=== PATIENT | male | born 1970 | race African-American/Black ===

== ENCOUNTER 2016-08-12 13:46 | Emergency (ER) | payer OTHER ==
[2016-08-12 14:14] VITALS: BP 120/70
[2016-08-12] MEDS ORDERED: Ketorolac 60 MG/2 ML SDV IM ONE (14:41)
--- NOTE | 2016-08-12 14:42 | EDM.PDOC ---
[id number] 4d RSD LEFT ARM Time Seen by Provider: 08/12/16 14:43 Source: Reports: Patient History Limitations: Reports: No limitations - History of Present Illness INITIAL COMMENTS - FREE TEXT/NARRATIVE: pt has a history of Rsd following a carpal tunnel repair. He has a flare of pain from time to time. . Occurred When: last week Method of Injury: other (no injury) Pain/Injury Location: Reports: upper extremity, left Associated Symptoms: Reports: denies other symptoms Allergies/ADRs: Allergies measles vaccine, live Allergy (Severe, Verified 02/23/16 01:40) Rash vancomycin Adverse Reaction (Severe, Verified 02/24/16 15:00) Dizziness Home Medications: Ambulatory Orders DULoxetine [Cymbalta] 60 mg PO BID 04/10/13 [Confirmed 08/12/16] Gabapentin [Neurontin] 300 mg PO BEDTIME 04/10/13 [Confirmed 08/12/16] Gabapentin [Neurontin] 600 mg PO TID 04/10/13 [Confirmed 08/12/16] Hydrocodone/Acetaminophen [Hydrocodon-Acetaminophn 10-325] 2 tab PO Q6HR [Confirmed 08/12/16] Simvastatin [Simvastatin] 20 mg PO DAILY 04/10/13 [Confirmed 08/12/16] Colchicine [Colcrys] 0.6 mg PO DAILY 02/11/14 [Confirmed 08/12/16] Lidocaine 5% [Lidoderm 5%] 1 patch TOP DAILY 02/11/14 [Confirmed 08/12/16] sulfaSALAzine [sulfaSALAzine] 500 mg PO BID 02/11/14 [Confirmed 08/12/16] traMADol [Ultram] 50 mg PO Q6H PRN 02/11/14 [Confirmed 08/12/16] ALPRAZolam [Xanax] 1 mg PO BID 02/19/14 [Confirmed 08/12/16] Cholecalciferol (Vitamin D3) [Vitamin D] 1,000 unit PO BID 04/23/14 [Confirmed 08/12/16] Vitamin A Palmitate [Vitamin A] 1 mg PO BID 04/23/14 [Confirmed 08/12/16] Omeprazole [Prilosec] 20 mg PO DAILY 06/29/14 [Confirmed 08/12/16] traZODone 50 mg PO BEDTIME 02/23/16 [Confirmed 08/12/16] Past Medical History Cardiovascular History: Reports: High cholesterol Gastrointestinal History: Reports: GERD Musculoskeletal History: Reports: Gout, Other (see below) Other Musculoskeletal History: Reflex sympathetic dystrophy Psychiatric History: Reports: Anxiety, Depression - Infectious Disease History Infectious Disease History: Reports: Chicken pox, Measles, Mumps - Past Surgical History Musculoskeletal Surgical History: Reports: Other (see below) Other Musculoskeletal Surgeries/Procedures:: left hand, wrist, arm surgeries Social & Family History - Tobacco Use Smoking Status *Q: Current Some Day Smoker Years of Tobacco use: 15 Packs/Tins Daily: 0.1 Used Tobacco, but Quit: Yes Month Tobacco Last Used: 08/02/14 Second Hand Smoke Exposure: No - Caffeine Use Caffeine Use: Reports: None - Alcohol Use Days Per Week of Alcohol Use: 0 - Recreational Drug Use Recreational Drug Use: No - Living Situation & Occupation Living situation: Reports: single, with family Occupation: disabled (lives [address] in [place], [place] with his two children ages 8 yrs and 9 yrs.) Review of Systems - Review of Systems Review Of Systems: See Below Trauma Exam - Physical Exam Exam: See Below Course - Vital Signs Last Recorded V/S: Last Vital Signs Temp 35.7 C 08/12/16 14:20 Pulse 70 08/12/16 14:20 Resp 16 08/12/16 14:20 BP 120/70 08/12/16 14:20 Pulse Ox 91 L 08/12/16 14:20 - Orders/Labs/Meds Meds: Medications Discontinued Medications Generic Name Dose Route Start Last Admin Trade Name Eddie PRN Reason Stop Dose Admin Ketorolac Tromethamine 60 mg 08/12/16 14:41 08/12/16 14:53 Toradol IM 08/12/16 14:42 60 mg ONETIME ONE Administration Departure - Departure Time of Disposition: 14:42 Disposition: Home, Self-Care 01 Condition: fair Clinical Impression: RSD upper limb Instructions: Complex Regional Pain Syndrome Referrals: William Vincent MD [Primary Care Provider] - Forms: ED Department Discharge Care Plan Goals: continue the same new short arm braces. He will go to [facility] in [place]. Perscriptions were given to the pt to replace his braces.
== END 2016-08-12 15:00 | disposition home or self-care (01) ==
LOC: JP.ED 13:46
DX: G90.512 Complex regional pain syndrome I of left upper limb (principal); E78.00 Pure hypercholesterolemia, unspecified; K21.9 Gastro-esophageal reflux disease without esophagitis; F41.8 Other specified anxiety disorders; F17.210 Nicotine dependence, cigarettes, uncomplicated; Z98.890 Other specified postprocedural states; Z88.1 Allergy status to other antibiotic agents; Z88.8 Allergy status to other drugs, medicaments and biological substances; Z88.2 Allergy status to sulfonamides
CPT/HCPCS: 96372; 99283; J1885

== ENCOUNTER 2017-01-09 00:30 | Emergency (ER) | payer OTHER ==
[2017-01-09] MEDS ORDERED: Ketorolac 60 MG/2 ML SDV IM ONE (00:59)
--- NOTE | 2017-01-09 01:00 | EDM.PDOC ---
ED HPI GENERAL MEDICAL PROBLEM - General Chief Complaint: Upper Extremity Injury/Pain Stated Complaint: RDS Time Seen by Provider: 01/09/17 00:39 Source of Information: Reports: Patient History Limitations: Reports: No Limitations - History of Present Illness INITIAL COMMENTS - FREE TEXT/NARRATIVE: This patient has reflex sympathetic dystrophy which affects his left wrist. He' s been doing well for the last month or so but says today suddenly he began having severe burning pain in the wrist. He describes the the treatment he's had and surgical options been offered. He denies any weakness. Treatments [facility]PENTER GENERAL: Reports: Splint(s) Left Wrist Pain Score (Numeric/FACES): 9 - Related Data Allergies Allergy/AdvReac Type Severity Reaction Status Date / Time measles vaccine, live Allergy Severe Rash Verified 01/09/17 00:41 vancomycin AdvReac Severe Dizziness Verified 01/09/17 00:41 Home Meds: Home Meds DULoxetine [Cymbalta] 60 mg PO BID 04/10/13 [History] Gabapentin [Neurontin] 300 mg PO BEDTIME 04/10/13 [History] Gabapentin [Neurontin] 600 mg PO TID 04/10/13 [History] Hydrocodone/Acetaminophen [Hydrocodon-Acetaminophn 10-325] 2 tab PO Q6HR [History] Simvastatin [Simvastatin] 20 mg PO DAILY 04/10/13 [History] Colchicine [Colcrys] 0.6 mg PO DAILY 02/11/14 [History] Lidocaine 5% [Lidoderm 5%] 1 patch TOP DAILY 02/11/14 [History] sulfaSALAzine [sulfaSALAzine] 500 mg PO BID 02/11/14 [History] traMADol [Ultram] 50 mg PO Q6H PRN 02/11/14 [History] ALPRAZolam [Xanax] 1 mg PO BID 02/19/14 [History] Cholecalciferol (Vitamin D3) [Vitamin D] 1,000 unit PO BID 04/23/14 [History] Vitamin A Palmitate [Vitamin A] 1 mg PO BID 04/23/14 [History] Omeprazole [Prilosec] 20 mg PO DAILY 06/29/14 [History] traZODone 50 mg PO BEDTIME 02/23/16 [History] Past Medical History Cardiovascular History: Reports: High Cholesterol Gastrointestinal History: Reports: GERD Musculoskeletal History: Reports: Gout, Other (See Below) Other Musculoskeletal History: Reflex sympathetic dystrophy Psychiatric History: Reports: Anxiety, Depression - Infectious Disease History Infectious Disease History: Reports: Chicken Pox - Past Surgical History Musculoskeletal Surgical History: Reports: Other (See Below) Social & Family History - Tobacco Use Smoking Status *Q: Current Some Day Smoker Years of Tobacco use: 15 Packs/Tins Daily: 0 Used Tobacco, but Quit: No Month Tobacco Last Used: 08/02/14 Second Hand Smoke Exposure: No - Caffeine Use Caffeine Use: Reports: None - Alcohol Use Days Per Week of Alcohol Use: 0 - Recreational Drug Use Recreational Drug Use: No - Living Situation & Occupation Living situation: Reports: Single, with Family Occupation: Disabled Review of Systems - Review of Systems Review Of Systems: ROS reveals no pertinent complaints other than HPI. ED EXAM, GENERAL - Physical Exam Exam: See Below Exam Limited By: No Limitations General Appearance: Alert, WD/WN, Mild Distress Eye Exam: Bilateral Eye: Normal Inspection Respiratory/Chest: No Respiratory Distress, Lungs Clear Cardiovascular: Regular Rate, Rhythm Extremities: Other (He has an Velcro type brace on his left wrist) Course - Vital Signs Last Recorded V/S: Last Vital Signs Temp 35.5 C 01/09/17 00:46 Pulse 81 01/09/17 00:46 Resp 16 01/09/17 00:46 BP 151/93 H 01/09/17 00:46 Pulse Ox 94 L 01/09/17 00:46 - Orders/Labs/Meds Meds: Medications Discontinued Medications Generic Name Dose Route Start Last Admin Trade Name Eddie PRN Reason Stop Dose Admin Ketorolac Tromethamine 60 mg 01/09/17 00:59 01/09/17 01:05 Toradol IM 01/09/17 01:00 60 mg ONETIME ONE Administration - Re-Assessments/Exams Free Text/Narrative Re-Assessment/Exam: 01/09/17 06:54 He received an injection of Toradol 60 mg IM. He had asked for Vistaril also but we noted that in the past he seemed to do well with just the Toradol and the patient is driving home. He claimed the Vistaril does not make him sleepy however I felt that Toradol alone could be the most appropriate treatment Departure - Departure Time of Disposition: 00:59 Disposition: Home, Self-Care 01 Condition: Fair Clinical Impression: Reflex sympathetic dystrophy - Discharge Information Instructions: Complex Regional Pain Syndrome Referrals: PCP,None [Primary Care Provider] - Forms: ED Department Discharge Additional Instructions: you received an injection of 60 mg of Toradol. Follow-up with your doctor as needed or return to the ER.
[2017-01-09 01:31] VITALS: BP 151/93
== END 2017-01-09 01:14 | disposition home or self-care (01) ==
LOC: JP.ED 00:30
DX: G90.512 Complex regional pain syndrome I of left upper limb (principal); E78.00 Pure hypercholesterolemia, unspecified; K21.9 Gastro-esophageal reflux disease without esophagitis; F41.9 Anxiety disorder, unspecified; F32.9 Major depressive disorder, single episode, unspecified; F17.210 Nicotine dependence, cigarettes, uncomplicated; Z88.1 Allergy status to other antibiotic agents; Z88.8 Allergy status to other drugs, medicaments and biological substances; Z79.899 Other long term (current) drug therapy
CPT/HCPCS: 96372; 99283; J1885

== ENCOUNTER 2017-06-08 05:57 | Emergency (ER) | payer OTHER ==
[2017-06-08 06:24] VITALS: BP 148/90
[2017-06-08] MEDS ORDERED: Ketorolac 60 MG/2 ML SDV IM ONE (06:36)
--- NOTE | 2017-06-08 06:43 | EDM.PDOC ---
ED HPI GENERAL MEDICAL PROBLEM - General Chief Complaint: Upper Extremity Injury/Pain Stated Complaint: L ARM PAIN Time Seen by Provider: 06/08/17 06:37 Source of Information: Reports: Patient, Family History Limitations: Reports: No Limitations - History of Present Illness INITIAL COMMENTS - FREE TEXT/NARRATIVE: pt has a chronic burning pain in the left wrist following a carpal tummel surgery. He does get relief with torodol Onset: Gradual Duration: Day(s): Location: Reports: Upper Extremity, Left Associated Symptoms: Reports: No Other Symptoms Left Hand Pain Score (Numeric/FACES): 9 - Related Data Allergies Allergy/AdvReac Type Severity Reaction Status Date / Time measles vaccine, live Allergy Severe Rash Verified 06/08/17 06:08 vancomycin AdvReac Severe Dizziness Verified 06/08/17 06:08 Home Meds: Home Meds DULoxetine [Cymbalta] 60 mg PO BID 04/10/13 [History] Gabapentin [Neurontin] 300 mg PO BEDTIME 04/10/13 [History] Gabapentin [Neurontin] 600 mg PO TID 04/10/13 [History] Hydrocodone/Acetaminophen [Hydrocodon-Acetaminophn 10-325] 2 tab PO Q6HR [History] Simvastatin [Simvastatin] 20 mg PO DAILY 04/10/13 [History] Colchicine [Colcrys] 0.6 mg PO DAILY 02/11/14 [History] Lidocaine 5% [Lidoderm 5%] 1 patch TOP DAILY 02/11/14 [History] sulfaSALAzine [sulfaSALAzine] 500 mg PO BID 02/11/14 [History] traMADol [Ultram] 50 mg PO Q6H PRN 02/11/14 [History] ALPRAZolam [Xanax] 1 mg PO BID 02/19/14 [History] Cholecalciferol (Vitamin D3) [Vitamin D] 1,000 unit PO BID 04/23/14 [History] Vitamin A Palmitate [Vitamin A] 1 mg PO BID 04/23/14 [History] Omeprazole [Prilosec] 20 mg PO DAILY 06/29/14 [History] traZODone 50 mg PO BEDTIME 02/23/16 [History] Past Medical History Cardiovascular History: Reports: High Cholesterol Gastrointestinal History: Reports: GERD Musculoskeletal History: Reports: Gout, Other (See Below) Other Musculoskeletal History: Reflex sympathetic dystrophy Psychiatric History: Reports: Anxiety, Depression - Infectious Disease History Infectious Disease History: Reports: Chicken Pox - Past Surgical History Musculoskeletal Surgical History: Reports: Other (See Below) Social & Family History - Tobacco Use Smoking Status *Q: Current Some Day Smoker Years of Tobacco use: 15 Packs/Tins Daily: 0 Used Tobacco, but Quit: No Month Tobacco Last Used: 08/02/14 Second Hand Smoke Exposure: No - Caffeine Use Caffeine Use: Reports: None - Alcohol Use Days Per Week of Alcohol Use: 0 - Recreational Drug Use Recreational Drug Use: No - Living Situation & Occupation Living situation: Reports: Single, with Family Occupation: Disabled Review of Systems - Review of Systems Review Of Systems: See Below Constitutional: Reports: No Symptoms Eyes: Reports: No Symptoms Ears: Reports: No Symptoms Nose: Reports: No Symptoms Mouth/Throat: Reports: No Symptoms Respiratory: Reports: No Symptoms Cardiovascular: Reports: No Symptoms GI/Abdominal: Reports: No Symptoms ED EXAM, GENERAL - Physical Exam Exam: See Below Free Text/Narrative:: pt has chronic burning pain in the left wrist area. He is here for a torodol injection Exam Limited By: No Limitations General Appearance: Alert, Anxious, Mild Distress Extremities: Other ( left wrist is not swollen or inflamed any different that in the past. ) Neurological: Alert, Oriented, Normal Cognition Psychiatric: Normal Affect Course - Vital Signs Last Recorded V/S: Last Vital Signs Temp 35.9 C 06/08/17 06:23 Pulse 85 06/08/17 06:23 Resp 16 06/08/17 06:23 BP 148/90 H 06/08/17 06:23 Pulse Ox 95 06/08/17 06:23 - Orders/Labs/Meds Meds: Medications Discontinued Medications Generic Name Dose Route Start Last Admin Trade Name Freq PRN Reason Stop Dose Admin Ketorolac Tromethamine 60 mg 06/08/17 06:36 06/08/17 06:45 Toradol IM 06/08/17 06:37 60 mg ONETIME ONE Administration - Re-Assessments/Exams Free Text/Narrative Re-Assessment/Exam: 06/09/17 00:15 pt was given torodol 60mg im. Departure - Departure Time of Disposition: 06:41 Disposition: Home, Self-Care 01 Condition: Fair Clinical Impression: Pain of left hand - Discharge Information Referrals: William Vincent MD [Primary Care Provider] - Forms: ED Department Discharge Care Plan Goals: cont same meds, rtc if problems.
== END 2017-06-08 06:56 | disposition home or self-care (01) ==
LOC: JP.ED 05:57
DX: M25.532 Pain in left wrist (principal); G89.29 Other chronic pain; E78.00 Pure hypercholesterolemia, unspecified; K21.9 Gastro-esophageal reflux disease without esophagitis; F17.200 Nicotine dependence, unspecified, uncomplicated; Z98.890 Other specified postprocedural states; Z88.7 Allergy status to serum and vaccine; Z88.1 Allergy status to other antibiotic agents; Z79.899 Other long term (current) drug therapy
CPT/HCPCS: 96372; 99283; J1885

== ENCOUNTER 2017-11-04 13:42 | Emergency (ER) | payer OTHER ==
[2017-11-04 13:56] VITALS: BP 145/97
[2017-11-04] MEDS ORDERED: Ketorolac 60 MG/2 ML SDV IM ONE (14:14)
--- NOTE | 2017-11-04 14:20 | EDM.PDOC ---
ED HPI GENERAL MEDICAL PROBLEM - General Chief Complaint: Upper Extremity Injury/Pain Stated Complaint: LEFT HAND,WRIST,ARM BURNING SENSATION Time Seen by Provider: 11/04/17 14:00 Source of Information: Reports: Patient History Limitations: Reports: No Limitations - History of Present Illness INITIAL COMMENTS - FREE TEXT/NARRATIVE: 47-year-old male with chronic RSD his left hand has been taking his usual medications but has a burning flareup of his left hand. He would like a shot of Toradol which gives him relief. Quality: Reports: Burning Severity: Moderate Associated Symptoms: Reports: No Other Symptoms Left Arm Pain Score (Numeric/FACES): 8 - Related Data Allergies Allergy/AdvReac Type Severity Reaction Status Date / Time measles vaccine, live Allergy Severe Rash Verified 06/08/17 06:08 vancomycin AdvReac Severe Dizziness Verified 06/08/17 06:08 Home Meds: Home Meds DULoxetine [Cymbalta] 60 mg PO BID 04/10/13 [History] Gabapentin [Neurontin] 300 mg PO BEDTIME 04/10/13 [History] Gabapentin [Neurontin] 600 mg PO TID 04/10/13 [History] Hydrocodone/Acetaminophen [Hydrocodon-Acetaminophn 10-325] 2 tab PO Q6HR [History] Simvastatin 20 mg PO DAILY 04/10/13 [History] Colchicine [Colcrys] 0.6 mg PO DAILY 02/11/14 [History] Lidocaine 5% [Lidoderm 5%] 1 patch TOP DAILY 02/11/14 [History] sulfaSALAzine 500 mg PO BID 02/11/14 [History] traMADol [Ultram] 50 mg PO Q6H PRN 02/11/14 [History] ALPRAZolam [Xanax] 1 mg PO BID 02/19/14 [History] Cholecalciferol (Vitamin D3) [Vitamin D] 1,000 unit PO BID 04/23/14 [History] Vitamin A Palmitate [Vitamin A] 1 mg PO BID 04/23/14 [History] Omeprazole [Prilosec] 20 mg PO DAILY 06/29/14 [History] traZODone 50 mg PO BEDTIME 02/23/16 [History] Past Medical History Cardiovascular History: Reports: High Cholesterol Gastrointestinal History: Reports: GERD Musculoskeletal History: Reports: Gout, Other (See Below) Other Musculoskeletal History: Reflex sympathetic dystrophy Psychiatric History: Reports: Anxiety, Depression - Infectious Disease History Infectious Disease History: Reports: Chicken Pox - Past Surgical History Musculoskeletal Surgical History: Reports: Other (See Below) Social & Family History - Tobacco Use Years of Tobacco use: 30 Packs/Tins Daily: 0.5 - Caffeine Use Caffeine Use: Reports: Soda - Recreational Drug Use Recreational Drug Use: No - Living Situation & Occupation Living situation: Reports: Single, with Family Occupation: Disabled Review of Systems - Review of Systems Review Of Systems: See Below Respiratory: Reports: No Symptoms Skin: Reports: No Symptoms Neurological: Reports: No Symptoms ED EXAM, GENERAL - Physical Exam Exam: See Below Exam Limited By: No Limitations General Appearance: Alert, No Apparent Distress Respiratory/Chest: No Respiratory Distress Extremities: Other (Exam is otherwise limited to the hands. They are symmetric, however he has tenderness to palpation especially of the median nerve distribution of the left hand) Course - Vital Signs Last Recorded V/S: Last Vital Signs Temp 96.1 F 11/04/17 13:59 Pulse 74 11/04/17 13:59 Resp 17 11/04/17 13:59 BP 145/97 H 11/04/17 13:59 Pulse Ox 95 11/04/17 13:59 - Orders/Labs/Meds Meds: Medications Discontinued Medications Generic Name Dose Route Start Last Admin Trade Name Eddie PRAudi Reason Stop Dose Admin Ketorolac Tromethamine 60 mg 11/04/17 14:14 11/04/17 14:19 Toradol IM 11/04/17 14:15 60 mg ONETIME ONE Administration - Re-Assessments/Exams Free Text/Narrative Re-Assessment/Exam: 11/04/17 14:20 Patient was given an injection of 60 mg of IM Toradol. He will continue his regular medications. Departure - Departure Time of Disposition: 14:31 Disposition: Home, Self-Care 01 Condition: Good Clinical Impression: RSD (reflex sympathetic dystrophy) - Discharge Information Instructions: Complex Regional Pain Syndrome Referrals: PCP,None [Primary Care Provider] - Forms: ED Department Discharge Care Plan Goals: Continue your current medications and increase activity as tolerated.
== END 2017-11-04 14:31 | disposition home or self-care (01) ==
LOC: JP.ED 13:42
DX: G90.512 Complex regional pain syndrome I of left upper limb (principal); E78.00 Pure hypercholesterolemia, unspecified; F41.9 Anxiety disorder, unspecified; F17.210 Nicotine dependence, cigarettes, uncomplicated; F32.9 Major depressive disorder, single episode, unspecified; Z88.1 Allergy status to other antibiotic agents; Z88.7 Allergy status to serum and vaccine; Z79.899 Other long term (current) drug therapy
CPT/HCPCS: 96372; 99283; J1885

== ENCOUNTER 2018-08-10 03:13 | Emergency (ER) | payer OTHER ==
[2018-08-10 04:01] VITALS: BP 154/83
[2018-08-10] MEDS ORDERED: Ketorolac 60 MG/2 ML SDV IM ONE (04:30)
--- NOTE | 2018-08-10 04:32 | EDM.PDOC ---
ED HPI GENERAL MEDICAL PROBLEM - General Chief Complaint: Skin Complaint Stated Complaint: RSD Time Seen by Provider: 08/10/18 04:25 Source of Information: Reports: Patient History Limitations: Reports: No Limitations - History of Present Illness INITIAL COMMENTS - FREE TEXT/NARRATIVE: This gentleman has reflex sympathetic dystrophy. This morning he is having a flareup and said that his left hand feels like it is on fire. In the past he has done real well with an injection of Toradol and he requests the same left hand Pain Score (Numeric/FACES): 9 - Related Data Allergies Allergy/AdvReac Type Severity Reaction Status Date / Time measles vaccine, live Allergy Severe Rash Verified 08/10/18 04:10 vancomycin AdvReac Severe Dizziness Verified 08/10/18 04:10 Home Meds: Home Meds DULoxetine [Cymbalta] 60 mg PO BID 04/10/13 [History] Gabapentin [Neurontin] 300 mg PO BEDTIME 04/10/13 [History] Gabapentin [Neurontin] 600 mg PO TID 04/10/13 [History] Hydrocodone/Acetaminophen [Hydrocodon-Acetaminophn 10-325] 2 tab PO Q6HR [History] Simvastatin 20 mg PO DAILY 04/10/13 [History] Colchicine [Colcrys] 0.6 mg PO DAILY 02/11/14 [History] Lidocaine 5% [Lidoderm 5%] 1 patch TOP DAILY 02/11/14 [History] sulfaSALAzine 500 mg PO BID 02/11/14 [History] traMADol [Ultram] 50 mg PO Q6H PRN 02/11/14 [History] ALPRAZolam [Xanax] 1 mg PO BID 02/19/14 [History] Cholecalciferol (Vitamin D3) [Vitamin D] 1,000 unit PO BID 04/23/14 [History] Vitamin A Palmitate [Vitamin A] 1 mg PO BID 04/23/14 [History] Omeprazole [Prilosec] 20 mg PO DAILY 06/29/14 [History] traZODone 50 mg PO BEDTIME 02/23/16 [History] Past Medical History Cardiovascular History: Reports: High Cholesterol Gastrointestinal History: Reports: GERD Musculoskeletal History: Reports: Gout, Other (See Below) Other Musculoskeletal History: Reflex sympathetic dystrophy Psychiatric History: Reports: Anxiety, Depression - Infectious Disease History Infectious Disease History: Reports: Chicken Pox - Past Surgical History Musculoskeletal Surgical History: Reports: Other (See Below) Social & Family History - Tobacco Use Smoking Status *Q: Current Every Day Smoker Years of Tobacco use: 20 Packs/Tins Daily: 0.1 - Caffeine Use Caffeine Use: Reports: Coffee - Recreational Drug Use Recreational Drug Use: No - Living Situation & Occupation Living situation: Reports: Single, with Family Occupation: Disabled ED ROS GENERAL - Review of Systems Review Of Systems: ROS reveals no pertinent complaints other than HPI. ED EXAM, SKIN/RASH Exam: See Below Exam Limited By: No Limitations General Appearance: Alert, WD/WN, Mild Distress Extremities: Other (The right hand appears to be grossly normal. There is no edema no rash or other lesions) Course - Vital Signs Last Recorded V/S: Last Vital Signs Temp 36.3 C 08/10/18 04:11 Pulse 71 08/10/18 04:11 Resp 16 08/10/18 04:11 BP 154/83 H 08/10/18 04:11 Pulse Ox 98 08/10/18 04:11 - Orders/Labs/Meds Meds: Medications Discontinued Medications Generic Name Dose Route Start Last Admin Trade Name Eddie PRN Reason Stop Dose Admin Ketorolac Tromethamine 60 mg 08/10/18 04:30 08/10/18 04:41 Toradol IM 08/10/18 04:31 60 mg ONETIME ONE Administration - Re-Assessments/Exams Free Text/Narrative Re-Assessment/Exam: 08/10/18 06:43 The patient received Toradol 60 mg IM. He was not kept in the ER longer than necessary since this is always been effective in the past Departure - Departure Time of Disposition: 04:30 Disposition: Home, Self-Care 01 Condition: Fair Clinical Impression: Reflex sympathetic dystrophy of left upper extremity - Discharge Information Instructions: Complex Regional Pain Syndrome Referrals: William Vincent MD [Primary Care Provider] - Forms: ED Department Discharge Additional Instructions: continue your usual medications. Return to the ER if needed.
== END 2018-08-10 04:44 | disposition home or self-care (01) ==
LOC: JP.ED 03:13
DX: G90.512 Complex regional pain syndrome I of left upper limb (principal); E78.00 Pure hypercholesterolemia, unspecified; K21.9 Gastro-esophageal reflux disease without esophagitis; F17.210 Nicotine dependence, cigarettes, uncomplicated; Z88.7 Allergy status to serum and vaccine; Z88.1 Allergy status to other antibiotic agents; Z79.899 Other long term (current) drug therapy
CPT/HCPCS: 96372; 99283; J1885

== ENCOUNTER 2019-01-11 02:27 | Emergency (ER) | payer OTHER ==
[2019-01-11] MEDS ORDERED: Ketorolac 30 MG/ML SDV IM ONE (03:03)
--- NOTE | 2019-01-11 03:11 | EDM.PDOC ---
ED HPI GENERAL MEDICAL PROBLEM - General Chief Complaint: Upper Extremity Injury/Pain Stated Complaint: BURNING SENSATION FROM HAND TO SHOULDER Time Seen by Provider: 01/11/19 03:03 Source of Information: Reports: Patient History Limitations: Reports: No Limitations - History of Present Illness INITIAL COMMENTS - FREE TEXT/NARRATIVE: This gentleman has a history of reflex sympathetic dystrophy and is having a flareup presently. He says his left forearm and hand feel like they are roasting on fire. He said that generally he gets good relief with Toradol and needs an injection only a few times a year. He has never tried any oral NSAIDs such as Motrin. Treatments MANAGER LABOR RELATIONS: Reports: Other (see below) Other Treatments MANAGER LABOR RELATIONS: none Left Hand Pain Score (Numeric/FACES): 6 - Related Data Allergies Allergy/AdvReac Type Severity Reaction Status Date / Time measles vaccine, live Allergy Severe Rash Verified 01/11/19 02:53 vancomycin AdvReac Severe Dizziness Verified 01/11/19 02:53 Home Meds: Home Meds DULoxetine [Cymbalta] 60 mg PO BID 04/10/13 [History] Gabapentin [Neurontin] 300 mg PO BEDTIME 04/10/13 [History] Gabapentin [Neurontin] 600 mg PO TID 04/10/13 [History] Simvastatin 20 mg PO DAILY 04/10/13 [History] Colchicine [Colcrys] 0.6 mg PO DAILY 02/11/14 [History] Lidocaine 5% [Lidoderm 5%] 1 patch TOP DAILY 02/11/14 [History] sulfaSALAzine 500 mg PO BID 02/11/14 [History] traMADol [Ultram] 50 mg PO Q6H PRN 02/11/14 [History] ALPRAZolam [Xanax] 1 mg PO BID 02/19/14 [History] Cholecalciferol (Vitamin D3) [Vitamin D] 1,000 unit PO BID 04/23/14 [History] Vitamin A Palmitate [Vitamin A] 1 mg PO BID 04/23/14 [History] Omeprazole [Prilosec] 20 mg PO DAILY 06/29/14 [History] traZODone 50 mg PO BEDTIME 02/23/16 [History] Hydrocodone/Acetaminophen [Hydrocodon-Acetaminophn 10-325] 1 - 2 tab PO Q6H PRN 01/11/19 [History] Past Medical History Cardiovascular History: Reports: High Cholesterol Gastrointestinal History: Reports: GERD Musculoskeletal History: Reports: Gout, Other (See Below) Other Musculoskeletal History: Reflex sympathetic dystrophy Psychiatric History: Reports: Anxiety, Depression - Infectious Disease History Infectious Disease History: Reports: Chicken Pox - Past Surgical History Head Surgeries/Procedures: Reports: None Musculoskeletal Surgical History: Reports: Other (See Below) Social & Family History - Tobacco Use Smoking Status *Q: Current Some Day Smoker Years of Tobacco use: 28 Packs/Tins Daily: 0.2 Second Hand Smoke Exposure: No - Caffeine Use Caffeine Use: Reports: Coffee - Recreational Drug Use Recreational Drug Use: No - Living Situation & Occupation Living situation: Reports: Single, with Family Occupation: Disabled Review of Systems - Review of Systems Review Of Systems: ROS reveals no pertinent complaints other than HPI. ED EXAM, GENERAL - Physical Exam Exam: See Below Exam Limited By: No Limitations General Appearance: Alert, WD/WN, No Apparent Distress Extremities: Other (Grossly normal appearing left arm and hand.) Neurological: No Motor/Sensory Deficits Course - Vital Signs Last Recorded V/S: Last Vital Signs Temp 35.7 C 01/11/19 02:56 Pulse 75 01/11/19 02:56 Resp 14 01/11/19 02:56 BP 118/78 01/11/19 02:56 Pulse Ox 98 01/11/19 02:56 - Orders/Labs/Meds Meds: Medications Discontinued Medications Generic Name Dose Route Start Last Admin Trade Name Eddie PRN Reason Stop Dose Admin Ketorolac Tromethamine 60 mg 01/11/19 03:03 01/11/19 03:14 Toradol IM 01/11/19 03:04 60 mg ONETIME ONE Administration - Re-Assessments/Exams Free Text/Narrative Re-Assessment/Exam: 01/11/19 06:20 He received an injection of Toradol 60 mg IM. He got rapid relief Departure - Departure Time of Disposition: 03:07 Disposition: Home, Self-Care 01 Condition: Fair Clinical Impression: Reflex sympathetic dystrophy of both upper extremities - Discharge Information Instructions: Complex Regional Pain Syndrome Referrals: William Vincent MD [Primary Care Provider] - Forms: ED Department Discharge Additional Instructions: Continue your usual medications. Toradol is a little bit like an injectable Motrin or ibuprofen. You may wish to try this medication in the future since it may give relief similar to Toradol. It's available [id number]. Just follow package instructions. Talk to your regular doctor before using it on a regular basis however.
[2019-01-11 07:02] VITALS: BP 118/78; PULSE 75
== END 2019-01-11 03:22 | disposition home or self-care (01) ==
LOC: JP.ED 02:27
DX: G90.513 Complex regional pain syndrome I of upper limb, bilateral (principal); K21.9 Gastro-esophageal reflux disease without esophagitis; F41.9 Anxiety disorder, unspecified; M10.9 Gout, unspecified; F32.9 Major depressive disorder, single episode, unspecified; F17.210 Nicotine dependence, cigarettes, uncomplicated; Z88.1 Allergy status to other antibiotic agents; Z88.7 Allergy status to serum and vaccine; Z79.899 Other long term (current) drug therapy
CPT/HCPCS: 96372; 99284; J1885

== ENCOUNTER 2019-07-21 14:27 | Emergency (ER) | payer OTHER ==
[2019-07-21 14:40] VITALS: BP 144/81; PULSE 71
[2019-07-21] MEDS ORDERED: Ketorolac 60 MG/2 ML SDV IM ONE (15:04)
--- NOTE | 2019-07-21 15:12 | EDM.PDOC ---
ED HPI GENERAL MEDICAL PROBLEM - General Chief Complaint: Upper Extremity Injury/Pain Stated Complaint: LEFT HAND, WRIST,ARM, PAIN Time Seen by Provider: 07/21/19 15:07 Source of Information: Reports: Patient History Limitations: Reports: No Limitations - History of Present Illness INITIAL COMMENTS - FREE TEXT/NARRATIVE: pt is having burning pain at the wrist and going up the left arm. He has had this for awhile, The wrist has been explored 3 times. He states it flares from time to time. Onset: Gradual Duration: Day(s): Location: Reports: Upper Extremity, Left Associated Symptoms: Reports: No Other Symptoms Left Hand Pain Score (Numeric/FACES): 10 - Related Data Allergies Allergy/AdvReac Type Severity Reaction Status Date / Time measles vaccine, live Allergy Severe Rash Verified 01/11/19 02:53 vancomycin AdvReac Severe Dizziness Verified 01/11/19 02:53 Home Meds: Home Meds DULoxetine [Cymbalta] 60 mg PO BID 04/10/13 [History] Gabapentin [Neurontin] 300 mg PO BEDTIME 04/10/13 [History] Gabapentin [Neurontin] 600 mg PO TID 04/10/13 [History] Simvastatin 20 mg PO DAILY 04/10/13 [History] Colchicine [Colcrys] 0.6 mg PO DAILY 02/11/14 [History] Lidocaine 5% [Lidoderm 5%] 1 patch TOP DAILY 02/11/14 [History] sulfaSALAzine 500 mg PO BID 02/11/14 [History] traMADol [Ultram] 50 mg PO Q6H PRN 02/11/14 [History] ALPRAZolam [Xanax] 1 mg PO BID 02/19/14 [History] Cholecalciferol (Vitamin D3) [Vitamin D] 1,000 unit PO BID 04/23/14 [History] Vitamin A Palmitate [Vitamin A] 1 mg PO BID 04/23/14 [History] Omeprazole [Prilosec] 20 mg PO DAILY 06/29/14 [History] traZODone 50 mg PO BEDTIME 02/23/16 [History] Hydrocodone/Acetaminophen [Hydrocodon-Acetaminophn 10-325] 1 - 2 tab PO Q6H PRN 01/11/19 [History] Past Medical History Cardiovascular History: Reports: High Cholesterol Gastrointestinal History: Reports: GERD Musculoskeletal History: Reports: Gout, Other (See Below) Other Musculoskeletal History: Reflex sympathetic dystrophy Psychiatric History: Reports: Anxiety, Depression - Infectious Disease History Infectious Disease History: Reports: Chicken Pox - Past Surgical History Head Surgeries/Procedures: Reports: None Musculoskeletal Surgical History: Reports: Other (See Below) Social & Family History - Tobacco Use Smoking Status *Q: Heavy Tobacco Smoker Years of Tobacco use: 25 Packs/Tins Daily: 0.2 - Caffeine Use Caffeine Use: Reports: Coffee - Recreational Drug Use Recreational Drug Use: No - Living Situation & Occupation Living situation: Reports: Single, with Family Occupation: Disabled Review of Systems - Review of Systems Review Of Systems: See Below Constitutional: Reports: No Symptoms Eyes: Reports: No Symptoms Ears: Reports: No Symptoms Nose: Reports: No Symptoms Mouth/Throat: Reports: No Symptoms Respiratory: Reports: No Symptoms Cardiovascular: Reports: No Symptoms GI/Abdominal: Reports: No Symptoms Genitourinary: Reports: No Symptoms Musculoskeletal: Reports: Other ( burning pain going up the inside of the arm and at the wrist level. ) Skin: Reports: No Symptoms Neurological: Reports: No Symptoms ED EXAM, GENERAL - Physical Exam Exam: See Below Free Text/Narrative:: pt arrived with increase in pain in the left wrist. Exam Limited By: No Limitations General Appearance: Alert, Anxious, Moderate Distress Extremities: Other (left wrist has burning pain at the wrist level and going up the arm) Neurological: Alert, Oriented Psychiatric: Anxious Course - Vital Signs Last Recorded V/S: Last Vital Signs Temp 34.8 C L 07/21/19 14:43 Pulse 71 07/21/19 14:43 Resp 22 H 07/21/19 14:43 BP 144/81 H 07/21/19 14:43 Pulse Ox 94 L 07/21/19 14:43 - Orders/Labs/Meds Meds: Medications Discontinued Medications Generic Name Dose Route Start Last Admin Trade Name Freq PRN Reason Stop Dose Admin Ketorolac Tromethamine 60 mg 07/21/19 15:04 07/21/19 15:11 Toradol IM 07/21/19 15:05 60 mg ONETIME ONE Administration - Re-Assessments/Exams Free Text/Narrative Re-Assessment/Exam: 07/21/19 15:12 pt was given tordol 60 mg im. Departure - Departure Time of Disposition: 15:00 Disposition: Home, Self-Care 01 Condition: Fair Clinical Impression: Nerve pain - Discharge Information Instructions: Acute Pain, Adult Referrals: William Vincent MD [Primary Care Provider] - Forms: ED Department Discharge Care Plan Goals: continue with same meds. Sepsis Event Note - Evaluation Sepsis Screening Result: No Definite Risk - Focused Exam Date Exam was Performed: 07/22/19 Time Exam was Performed: 07:42
== END 2019-07-21 15:29 | disposition home or self-care (01) ==
LOC: JP.ED 14:27
DX: M79.2 Neuralgia and neuritis, unspecified (principal); E78.00 Pure hypercholesterolemia, unspecified; K21.9 Gastro-esophageal reflux disease without esophagitis; M10.9 Gout, unspecified; F41.9 Anxiety disorder, unspecified; F32.9 Major depressive disorder, single episode, unspecified; F17.210 Nicotine dependence, cigarettes, uncomplicated; Z88.1 Allergy status to other antibiotic agents; Z88.8 Allergy status to other drugs, medicaments and biological substances; Z79.899 Other long term (current) drug therapy
CPT/HCPCS: 96372; 99283; J1885

== ENCOUNTER 2020-09-23 15:51 | Emergency (ER) | payer OTHER ==
[2020-09-23 16:04] VITALS: BP 157/105; PULSE 83
[2020-09-23] MEDS ORDERED: Ketorolac 60 MG/2 ML SDV IM ONE (16:55)
--- NOTE | 2020-09-23 17:00 | EDM.PDOC ---
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 He has not been in here for almost a year, but over the past several days he has had an increase in burning and would like a Toradol injection. No other complaints other than some gout flare in his right foot. Onset: Gradual Duration: Day(s): (Worse the last several days) Location: Reports: Upper Extremity, Left Worsens with: Reports: Movement Associated Symptoms: Reports: Other (Paresthesias and burning in his left hand, no other symptoms) Left Arm Pain Score (Numeric/FACES): 9 - Related Data Allergies Allergy/AdvReac Type Severity Reaction Status Date / Time measles vaccine, live Allergy Severe Rash Verified 09/23/20 16:39 vancomycin AdvReac Severe Dizziness Verified 09/23/20 16:39 Home Meds: Home Meds DULoxetine [Cymbalta] 60 mg PO BID 04/10/13 [History] Gabapentin [Neurontin] 300 mg PO BEDTIME 04/10/13 [History] Gabapentin [Neurontin] 600 mg PO TID 04/10/13 [History] Simvastatin 20 mg PO DAILY 04/10/13 [History] Colchicine [Colcrys] 0.6 mg PO DAILY 02/11/14 [History] Lidocaine 5% [Lidoderm 5%] 1 patch TOP DAILY 02/11/14 [History] traMADol [Ultram] 50 mg PO Q6H PRN 02/11/14 [History] ALPRAZolam [Xanax] 1 mg PO BID 02/19/14 [History] Cholecalciferol (Vitamin D3) [Vitamin D] 1,000 unit PO BID 04/23/14 [History] Vitamin A Palmitate [Vitamin A] 1 mg PO BID 04/23/14 [History] Omeprazole [Prilosec] 20 mg PO DAILY 06/29/14 [History] traZODone 50 mg PO BEDTIME 02/23/16 [History] Hydrocodone/Acetaminophen [Hydrocodon-Acetaminophn 10-325] 1 - 2 tab PO Q6H PRN 01/11/19 [History] Past Medical History Cardiovascular History: Reports: High Cholesterol Gastrointestinal History: Reports: GERD Musculoskeletal History: Reports: Gout, Other (See Below) Other Musculoskeletal History: Reflex sympathetic dystrophy Psychiatric History: Reports: Anxiety, Depression - Infectious Disease History Infectious Disease History: Reports: Chicken Pox - Past Surgical History Head Surgeries/Procedures: Reports: None Musculoskeletal Surgical History: Reports: Other (See Below) Other Musculoskeletal Surgeries/Procedures:: left hand, wrist, arm surgeries Social & Family History - Tobacco Use Tobacco Use Status *Q: Light Tobacco User Years of Tobacco use: 30 Packs/Tins Daily: 0.4 - Caffeine Use Caffeine Use: Reports: None - Recreational Drug Use Recreational Drug Use: No - Living Situation & Occupation Living situation: Reports: Single, with Family Occupation: Disabled Review of Systems - Review of Systems Review Of Systems: See Below Constitutional: Denies: Fever Respiratory: Denies: Shortness of Breath Cardiovascular: Denies: Chest Pain GI/Abdominal: Denies: Abdominal Pain Skin: Denies: Erythema Neurological: Denies: Headache ED EXAM, GENERAL - Physical Exam Exam: See Below Exam Limited By: No Limitations General Appearance: Alert, No Apparent Distress (Looks uncomfortable but no distress) Head: Atraumatic Respiratory/Chest: No Respiratory Distress Extremities: Other (Exam is otherwise limited to the left hand. He has well- healed surgical scars on the flexor surface of the wrist, some slight swelling, and is very tender to even light palpation or percussion extending shocklike sensations into the fingers) Skin Exam: Warm, Dry Course - Vital Signs Last Recorded V/S: Last Vital Signs Temp 97.9 F 09/23/20 16:38 Pulse 83 09/23/20 16:38 Resp 16 09/23/20 16:38 BP 157/105 H 09/23/20 16:38 Pulse Ox 98 09/23/20 16:38 - Orders/Labs/Meds Meds: Medications Discontinued Medications Generic Name Dose Route Start Last Admin Trade Name Freq PRN Reason Stop Dose Admin Ketorolac Tromethamine 60 mg 09/23/20 16:55 09/23/20 17:18 Ketorolac 60 Mg/2 Ml Sdv IM 09/23/20 16:56 60 mg ONETIME ONE Administration - Re-Assessments/Exams Free Text/Narrative Re-Assessment/Exam: 09/23/20 16:59 Patient was given 60 mg of IM Toradol. Follow-up with his primary care as needed. Departure - Departure Time of Disposition: 17:24 Disposition: Home, Self-Care 01 Clinical Impression: Reflex sympathetic dystrophy of left upper extremity - Discharge Information Instructions: Complex Regional Pain Syndrome Referrals: William Vincent MD [Primary Care Provider] - Forms: ED Department Discharge Care Plan Goals: Continue current medications and follow-up with Dr. Vincent for any further treatment needed. Sepsis Event Note (ED) - Evaluation Sepsis Screening Result: No Definite Risk - Focused Exam Vital Signs: Vital Signs Temp Pulse Resp BP Pulse Ox 09/23/20 16:38 97.9 F 83 16 157/105 H 98 09/23/20 16:02 97.9 F 83 16 157/105 H 98
== END 2020-09-23 17:24 | disposition home or self-care (01) ==
LOC: JP.ED 15:51
DX: G90.522 Complex regional pain syndrome I of left lower limb (principal); E78.00 Pure hypercholesterolemia, unspecified; K21.9 Gastro-esophageal reflux disease without esophagitis; Z72.0 Tobacco use; Z88.1 Allergy status to other antibiotic agents; Z88.7 Allergy status to serum and vaccine
CPT/HCPCS: 96372; 99283; J1885

== ENCOUNTER 2020-11-27 13:47 | Emergency (ER) | payer OTHER ==
[2020-11-27 14:20] VITALS: BP 145/92; PULSE 82
[2020-11-27] MEDS ORDERED: Ketorolac 30 MG/ML SDV IM ONE (14:24)
--- NOTE | 2020-11-27 14:28 | EDM.PDOC ---
ED HPI GENERAL MEDICAL PROBLEM - General Chief Complaint: Upper Extremity Injury/Pain Stated Complaint: LEFT ARM PAIN Time Seen by Provider: 11/27/20 13:49 Source of Information: Reports: Patient, Old Records, RN Notes Reviewed History Limitations: Reports: No Limitations - History of Present Illness INITIAL COMMENTS - FREE TEXT/NARRATIVE: 50-year-old gentleman presents emergency department day complaint of left shoulder pain arm pain, he has a known history of RSD is on a variety of medications to help control his RSD was last visited by his primary care proximately 4 days ago was given a shot of Toradol at that time. Toradol usually does provide some relief he is convinced that he needs an x-ray of this arm to help understand the etiology left arm and shoulder Pain Score (Numeric/FACES): 9 - Related Data Allergies Allergy/AdvReac Type Severity Reaction Status Date / Time measles vaccine, live Allergy Severe Rash Verified 11/27/20 14:03 vancomycin AdvReac Severe Dizziness Verified 11/27/20 14:03 Home Meds: Home Meds DULoxetine [Cymbalta] 60 mg PO BID 04/10/13 [History] Gabapentin [Neurontin] 300 mg PO BEDTIME 04/10/13 [History] Gabapentin [Neurontin] 600 mg PO TID 04/10/13 [History] Simvastatin 20 mg PO DAILY 04/10/13 [History] Colchicine [Colcrys] 0.6 mg PO DAILY 02/11/14 [History] Lidocaine 5% [Lidoderm 5%] 1 patch TOP DAILY 02/11/14 [History] traMADol [Ultram] 50 mg PO Q6H PRN 02/11/14 [History] ALPRAZolam [Xanax] 1 mg PO TID 02/19/14 [History] Cholecalciferol (Vitamin D3) [Vitamin D] 1,000 unit PO BID 04/23/14 [History] Vitamin A Palmitate [Vitamin A] 1 mg PO BID 04/23/14 [History] Omeprazole [Prilosec] 20 mg PO DAILY 06/29/14 [History] traZODone 50 mg PO BEDTIME 02/23/16 [History] Hydrocodone/Acetaminophen [Hydrocodon-Acetaminophn 10-325] 1 - 2 tab PO Q6H PRN 01/11/19 [History] Past Medical History Cardiovascular History: Reports: High Cholesterol Gastrointestinal History: Reports: GERD Musculoskeletal History: Reports: Gout, Other (See Below) Other Musculoskeletal History: Reflex sympathetic dystrophy Psychiatric History: Reports: Anxiety, Depression - Infectious Disease History Infectious Disease History: Reports: Chicken Pox - Past Surgical History Head Surgeries/Procedures: Reports: None GI Surgical History: Reports: None Musculoskeletal Surgical History: Reports: Other (See Below) Other Musculoskeletal Surgeries/Procedures:: left hand, wrist, arm surgeries Social & Family History - Tobacco Use Tobacco Use Status *Q: Current Every Day Tobacco User Years of Tobacco use: 30 Packs/Tins Daily: 0.5 - Caffeine Use Caffeine Use: Reports: None - Recreational Drug Use Recreational Drug Use: No - Living Situation & Occupation Living situation: Reports: Single, with Family Occupation: Disabled Review of Systems - Review of Systems Review Of Systems: See Below Musculoskeletal: Reports: Arm Pain ED EXAM, GENERAL - Physical Exam Exam: See Below Exam Limited By: No Limitations General Appearance: Alert, WD/WN, No Apparent Distress Respiratory/Chest: No Respiratory Distress Extremities: Normal Inspection Course - Vital Signs Last Recorded V/S: Last Vital Signs Temp 96.9 F 11/27/20 14:16 Pulse 82 11/27/20 14:16 Resp 14 11/27/20 14:16 BP 145/92 H 11/27/20 14:16 Pulse Ox 98 11/27/20 14:16 - Orders/Labs/Meds Orders: Active Orders 24 hr Category Date Time Status Forearm 2V Lt [CR] Stat Exams 11/27/20 14:25 Taken Shoulder Comp Lt [CR] Stat Exams 11/27/20 14:25 Ordered Meds: Medications Discontinued Medications Generic Name Dose Route Start Last Admin Trade Name Eddie PRN Reason Stop Dose Admin Ketorolac Tromethamine 30 mg 11/27/20 14:24 11/27/20 14:43 Ketorolac 30 Mg/Ml Sdv IM 11/27/20 14:25 30 mg ONETIME ONE Administration Departure - Departure Time of Disposition: 14:55 Disposition: Home, Self-Care 01 Condition: Poor Clinical Impression: Reflex sympathetic dystrophy of left upper extremity - Discharge Information Referrals: William Vincent MD [Primary Care Provider] - Forms: ED Department Discharge Additional Instructions: Continue with your current medications, recommend follow-up with primary care for further evaluation of your reflex sympathetic dystrophy Sepsis Event Note (ED) - Evaluation Sepsis Screening Result: No Definite Risk - Focused Exam Vital Signs: Vital Signs Temp Pulse Resp BP Pulse Ox 11/27/20 14:16 96.9 F 82 14 145/92 H 98 - My Orders Last 24 Hours: My Active Orders 11/27/20 14:25 Forearm 2V Lt [CR] Stat Shoulder Comp Lt [CR] Stat - Assessment/Plan Last 24 Hours: My Active Orders 11/27/20 14:25 Forearm 2V Lt [CR] Stat Shoulder Comp Lt [CR] Stat Plan: Assessment Acuity = acute on chronic Site and laterality = RSD upper extremity Etiology = unknown Manifestations = pain Location of injury = Home Lab values = x-ray shoulder and arm reveal no acute process official read radiologist pending Plan Recommend follow-up primary care for further evaluation This note was dictated using [employer] voice recognition software please call with any questions on syntax or grammar.
--- NOTE | 2020-11-29 09:31 | CR ---
Shoulder Comp Lt, Forearm 2V Lt CLINICAL HISTORY: Pain FINDINGS: There is no acute fracture or dislocation in the left shoulder. There is some spurring at the AC joint. Impression: Mild spurring at the AC joint No fracture or dislocation Shoulder Comp Lt, Forearm 2V Lt CLINICAL HISTORY: Pain FINDINGS: There is no acute fracture within the forearm. IMPRESSION: Negative left forearm.
== END 2020-11-27 15:01 | disposition home or self-care (01) ==
LOC: JP.ED 13:47
DX: G90.512 Complex regional pain syndrome I of left upper limb (principal); E78.00 Pure hypercholesterolemia, unspecified; K21.9 Gastro-esophageal reflux disease without esophagitis; Z88.7 Allergy status to serum and vaccine; Z88.1 Allergy status to other antibiotic agents; Z72.0 Tobacco use; Z79.899 Other long term (current) drug therapy
CPT/HCPCS: 73030; 73090; 96372; 99283; J1885

== ENCOUNTER 2021-01-13 13:53 | Emergency (ER) | payer MEDICARE, OTHER ==
[2021-01-13 14:18] VITALS: BP 170/105; PULSE 85
--- NOTE | 2021-01-13 14:44 | EDM.PDOC ---
ED HPI GENERAL MEDICAL PROBLEM - General Chief Complaint: Lower Extremity Injury/Pain Stated Complaint: PAIN ON THE LEFT LEG AND FOOT TOO Time Seen by Provider: 01/13/21 14:30 Source of Information: Reports: Patient, Old Records, RN History Limitations: Reports: No Limitations - History of Present Illness INITIAL COMMENTS - FREE TEXT/NARRATIVE: 50 yo male fell on 01/07 on a wet floor and injured his L lateral foot, L lateral knee, and L lateral hip. He has had ongoing pain since. Has not been to the clinic. Says he had bruising to the foot earlier in the course. The foot bothers him the most. Onset: Sudden Onset Date: 01/07/21 Duration: Day(s):, Constant Location: Reports: Lower Extremity, Left Quality: Reports: Ache Severity: Moderate Improves with: Reports: Rest Worsens with: Reports: Movement Context: Reports: Trauma Associated Symptoms: Reports: No Other Symptoms Treatments [employer]: Reports: Other (see below) (usual meds) left hip knee and foot Pain Score (Numeric/FACES): 8 - Related Data Allergies Allergy/AdvReac Type Severity Reaction Status Date / Time measles vaccine, live Allergy Severe Rash Verified 01/13/21 14:28 vancomycin AdvReac Severe Dizziness Verified 01/13/21 14:28 Home Meds: Home Meds Gabapentin [Neurontin] 300 mg PO BEDTIME 04/10/13 [History] Gabapentin [Neurontin] 600 mg PO TID 04/10/13 [History] Simvastatin 20 mg PO DAILY 04/10/13 [History] Colchicine [Colcrys] 0.6 mg PO DAILY 02/11/14 [History] Lidocaine 5% [Lidoderm 5%] 1 patch TOP DAILY 02/11/14 [History] traMADol [Ultram] 50 mg PO Q6H PRN 02/11/14 [History] ALPRAZolam [Xanax] 1 mg PO TID 02/19/14 [History] Cholecalciferol (Vitamin D3) [Vitamin D] 1,000 unit PO BID 04/23/14 [History] Vitamin A Palmitate [Vitamin A] 1 mg PO BID 04/23/14 [History] Omeprazole [Prilosec] 20 mg PO DAILY 06/29/14 [History] traZODone 50 mg PO BEDTIME 02/23/16 [History] Hydrocodone/Acetaminophen [Hydrocodon-Acetaminophn 10325] 1 - 2 tab PO Q6H PRN 01/11/19 [History] Past Medical History Cardiovascular History: Reports: High Cholesterol Gastrointestinal History: Reports: GERD Musculoskeletal History: Reports: Gout, Other (See Below) Other Musculoskeletal History: Reflex sympathetic dystrophy Psychiatric History: Reports: Anxiety, Depression - Infectious Disease History Infectious Disease History: Reports: Chicken Pox - Past Surgical History Head Surgeries/Procedures: Reports: None GI Surgical History: Reports: None Musculoskeletal Surgical History: Reports: Other (See Below) Other Musculoskeletal Surgeries/Procedures:: left hand, wrist, arm surgeries Social & Family History - Tobacco Use Tobacco Use Status *Q: Current Every Day Tobacco User Years of Tobacco use: 25 Packs/Tins Daily: 0.2 - Caffeine Use Caffeine Use: Reports: Coffee - Recreational Drug Use Recreational Drug Use: No - Living Situation & Occupation Living situation: Reports: Single, with Family Occupation: Disabled Review of Systems - Review of Systems Review Of Systems: See Below Constitutional: Reports: No Symptoms Musculoskeletal: Reports: Foot Pain (L lateral foot), Joint Pain (L lateral knee), Other (L lateral hip) Skin: Reports: No Symptoms Neurological: Reports: No Symptoms ED EXAM, GENERAL - Physical Exam Exam: See Below Exam Limited By: No Limitations General Appearance: Alert, WD/WN, No Apparent Distress Extremities: Normal Inspection, Normal Range of Motion, No Pedal Edema, Other (walks with a limp). No: Non-Tender (tender lateral foot with palpation), Pedal Edema, Limited Range of Motion, Increased Warmth Neurological: Alert, Oriented, CN II-XII Intact, Normal Cognition, No Motor/Sensory Deficits Psychiatric: Normal Affect, Normal Mood Skin Exam: Warm, Dry, Intact, Normal Color, No Rash Course - Vital Signs Last Recorded V/S: Last Vital Signs Temp 36.1 C 01/13/21 14:25 Pulse 85 01/13/21 14:25 Resp 17 01/13/21 14:25 BP 170/105 H 01/13/21 14:25 Pulse Ox 95 01/13/21 14:25 - Orders/Labs/Meds Orders: Active Orders 24 hr Category Date Time Status Foot Comp Min 3V Lt [CR] Stat Exams 01/13/21 14:40 Taken - Radiology Interpretation Free Text/Narrative:: L foot X-ray-neg Departure - Departure Time of Disposition: 15:15 Disposition: Home, Self-Care 01 Condition: Good Clinical Impression: Sprain of left foot Qualifiers: Encounter type: initial encounter Qualified Code(s): S93.602A - Unspecified sprain of left foot, initial encounter - Discharge Information *PRESCRIPTION DRUG MONITORING PROGRAM REVIEWED*: Not Applicable *COPY OF PRESCRIPTION DRUG MONITORING REPORT IN PATIENT HUGH: Not Applicable Referrals: William Vincent MD [Primary Care Provider] - Forms: ED Department Discharge Additional Instructions: Wear post-op shoe for support. Relative rest. Recheck if not better in a week with your provider. Sepsis Event Note (ED) - Evaluation Sepsis Screening Result: No Definite Risk - Focused Exam Vital Signs: Vital Signs Temp Pulse Resp BP Pulse Ox 01/13/21 14:25 36.1 C 85 17 170/105 H 95 01/13/21 14:17 36.1 C 85 17 170/105 H 95 - My Orders Last 24 Hours: My Active Orders 01/13/21 14:40 Foot Comp Min 3V Lt [CR] Stat - Assessment/Plan Last 24 Hours: My Active Orders 01/13/21 14:40 Foot Comp Min 3V Lt [CR] Stat
--- NOTE | 2021-01-13 15:58 | CRLCR ---
For Patients: As a result of the Century Cures Act, medical imaging exams and procedure reports are released immediately into your electronic medical record. You may view this report before your referring provider. If you have questions, please contact your health care provider. INDICATION: Trauma; pain left foot. COMPARISON: None. Technique :three-view study left foot. FINDINGS: No evidence of acute fracture or dislocation. No bone or soft tissue abnormalities. IMPRESSION: Negative radiographic examination of the left foot. Dictated by Jas Chavez MD @ 01/13/2021 3:56:27 PM (Electronically Signed)
== END 2021-01-13 15:36 | disposition home or self-care (01) ==
LOC: JP.ED 13:53
DX: S93.602A Unspecified sprain of left foot, initial encounter (principal); E78.00 Pure hypercholesterolemia, unspecified; I10 Essential (primary) hypertension; K21.9 Gastro-esophageal reflux disease without esophagitis; Z88.7 Allergy status to serum and vaccine; Z88.1 Allergy status to other antibiotic agents; Z79.899 Other long term (current) drug therapy; Z72.0 Tobacco use; W01.0XXA Fall on same level from slipping, tripping and stumbling without subsequent striking against object, initial encounter
CPT/HCPCS: 73630-LT; 99283-25

== ENCOUNTER 2021-05-02 10:32 | Emergency (ER) | payer OTHER, MEDICARE ==
[2021-05-02 11:24] VITALS: PULSE 82
[2021-05-02 12:00] VITALS: BP 131/80
[2021-05-02 13:01] LABS: CORONAVIRUS COVID-19 NAA NEGATIVE (NEGATIVE)
[2021-05-02] MEDS ORDERED: Dexamethasone 4 MG/ML SDV PO ONE (13:13)
[2021-05-02] MEDS ORDERED: Ketorolac 30 MG/ML SDV IM ONE (13:13)
--- NOTE | 2021-05-02 13:15 | EDM.PDOC ---
ED HPI GENERAL MEDICAL PROBLEM - General Chief Complaint: Upper Extremity Injury/Pain Stated Complaint: LEFT HAND & EAR PAIN SORE THROAT Time Seen by Provider: 05/02/21 13:08 Source of Information: Reports: Patient, RN Notes Reviewed History Limitations: Reports: No Limitations - History of Present Illness INITIAL COMMENTS - FREE TEXT/NARRATIVE: 51-year-old gentleman presents emergency department day complaint of sore throat, he has been exposed to Covid the family member about 2 weeks ago he has had sore throat for about 3 days no fevers he also has reflex sympathetic dyst rophy which has been exacerbated he is hoping to get a shot of Toradol today Left Hand Pain Score (Numeric/FACES): 9 - Related Data Allergies Allergy/AdvReac Type Severity Reaction Status Date / Time measles vaccine, live Allergy Intermediate Rash Verified 05/02/21 11:52 vancomycin AdvReac Intermediate Dizziness Verified 05/02/21 11:52 Home Meds: Home Meds Gabapentin [Neurontin] 300 mg PO BEDTIME 04/10/13 [History] Gabapentin [Neurontin] 600 mg PO TID 04/10/13 [History] Simvastatin 20 mg PO DAILY 04/10/13 [History] Colchicine [Colcrys] 0.6 mg PO DAILY 02/11/14 [History] Lidocaine 5% [Lidoderm 5%] 1 patch TOP DAILY 02/11/14 [History] traMADol [Ultram] 50 mg PO Q6H PRN 02/11/14 [History] ALPRAZolam [Xanax] 1 mg PO TID 02/19/14 [History] Cholecalciferol (Vitamin D3) [Vitamin D] 1,000 unit PO BID 04/23/14 [History] Vitamin A Palmitate [Vitamin A] 1 mg PO BID 04/23/14 [History] Omeprazole [Prilosec] 20 mg PO DAILY 06/29/14 [History] traZODone 50 mg PO BEDTIME 02/23/16 [History] Hydrocodone/Acetaminophen [Hydrocodon-Acetaminophn 10-325] 1 - 2 tab PO Q6H PRN 01/11/19 [History] Past Medical History Cardiovascular History: Reports: High Cholesterol Gastrointestinal History: Reports: GERD Musculoskeletal History: Reports: Gout, Other (See Below) Other Musculoskeletal History: Reflex sympathetic dystrophy Psychiatric History: Reports: Anxiety, Depression - Infectious Disease History Infectious Disease History: Reports: Chicken Pox, Measles, Mumps - Past Surgical History Head Surgeries/Procedures: Reports: None GI Surgical History: Reports: None Musculoskeletal Surgical History: Reports: Other (See Below) Other Musculoskeletal Surgeries/Procedures:: left hand, wrist, arm surgeries Social & Family History - Tobacco Use Tobacco Use Status *Q: Never Tobacco User - Caffeine Use Caffeine Use: Reports: Coffee - Living Situation & Occupation Living situation: Reports: Single, with Family Occupation: Disabled Review of Systems - Review of Systems Review Of Systems: See Below Constitutional: Reports: No Symptoms Mouth/Throat: Reports: Throat Swelling, Difficulty Swallowing, Painful Swallowing Respiratory: Reports: No Symptoms Cardiovascular: Reports: No Symptoms Musculoskeletal: Reports: Arm Pain ED EXAM, GENERAL - Physical Exam Exam: See Below Exam Limited By: No Limitations General Appearance: Alert, WD/WN, No Apparent Distress Ears: Normal External Exam, Normal Canal, Hearing Grossly Normal, Normal TMs Throat/Mouth: Normal Inspection, Normal Lips, Normal Teeth, Normal Gums, Normal Oropharynx, Normal Voice, No Airway Compromise Neck: Normal Inspection, Supple, Non-Tender, Full Range of Motion Respiratory/Chest: No Respiratory Distress, Lungs Clear, Normal Breath Sounds, No Accessory Muscle Use, Chest Non-Tender Cardiovascular: Regular Rate, Rhythm, No Murmur Course - Vital Signs Last Recorded V/S: Last Vital Signs Temp 97.5 F 05/02/21 11:21 Pulse 82 05/02/21 11:59 Resp 16 05/02/21 11:59 BP 131/80 05/02/21 11:59 Pulse Ox 96 05/02/21 11:59 - Orders/Labs/Meds Orders: Active Orders 24 hr Category Date Time Status CULTURE STREP A CONFIRMATION [RM] Stat Lab 05/02/21 13:37 Results STREP SCRN A RAPID W CULT CONF [RM] Stat Lab 05/02/21 13:37 Results Isolation [COMM] Stat Oth 05/02/21 12:17 Ordered Labs: Laboratory Tests 05/02/21 Range/Units 12:20 Influenza Type A RNA Negative (NEGATIVE) RSV RNA (INAAT) Negative (NEGATIVE) Influenza Type B RNA Negative (NEGATIVE) SARS-CoV-2 RNA (LUIS) Negative (NEGATIVE) Meds: Medications Discontinued Medications Generic Name Dose Route Start Last Admin Trade Name Freq PRN Reason Stop Dose Admin Dexamethasone 4 mg 05/02/21 13:13 05/02/21 13:35 Dexamethasone 4 Mg/Ml Sdv PO 05/02/21 13:14 4 mg ONETIME ONE Administration Ketorolac Tromethamine 30 mg 05/02/21 13:13 05/02/21 13:33 Ketorolac 30 Mg/Ml Sdv IM 05/02/21 13:14 30 mg ONETIME ONE Administration Departure - Departure Time of Disposition: 14:04 Disposition: Home, Self-Care 01 Condition: Fair Clinical Impression: Pharyngitis with viral syndrome, Viral syndrome - Discharge Information Instructions: Viral Illness, Adult, Pharyngitis, [id number] Referrals: William Vincent MD [Primary Care Provider] - Forms: ED Department Discharge Additional Instructions: Continue symptomatic care, please followup with your primary care provider in 3-5 days if not better, please call return to the emergency department with worsening of symptoms. Sepsis Event Note (ED) - Evaluation Sepsis Screening Result: No Definite Risk - Focused Exam Vital Signs: Vital Signs Temp Pulse Resp BP Pulse Ox 05/02/21 11:59 82 16 131/80 96 05/02/21 11:21 97.5 F 82 16 132/78 94 L - My Orders Last 24 Hours: My Active Orders 05/02/21 12:17 Isolation [COMM] Stat 05/02/21 13:37 CULTURE STREP A CONFIRMATION [RM] Stat STREP SCRN A RAPID W CULT CONF [RM] Stat - Assessment/Plan Last 24 Hours: My Active Orders 05/02/21 12:17 Isolation [COMM] Stat 05/02/21 13:37 CULTURE STREP A CONFIRMATION [RM] Stat STREP SCRN A RAPID W CULT CONF [RM] Stat Plan: Assessment Acuity = acute Site and laterality = viral syndrome Etiology = unknown Manifestations = pharyngitis Location of injury = Home Lab values = Covid, influenza, RSV, strep all negative Plan He had good relief for the Toradol injection for his RSD, will try dexamethasone elixir for some symptomatic relief of his pharyngitis follow-up primary care 3 to 4 days if not better This note was dictated using [employer] voice recognition software please call with any questions on syntax or grammar.
== END 2021-05-02 14:27 | disposition home or self-care (01) ==
LOC: JP.ED 10:32
DX: B34.9 Viral infection, unspecified (principal); E78.00 Pure hypercholesterolemia, unspecified; K21.9 Gastro-esophageal reflux disease without esophagitis; M10.9 Gout, unspecified; Z88.1 Allergy status to other antibiotic agents; Z88.7 Allergy status to serum and vaccine; Z79.899 Other long term (current) drug therapy; Z20.822 Contact with and (suspected) exposure to COVID-19
CPT/HCPCS: 0241U; 87081; 87880; 96372; 99283; J1885; J8540

== ENCOUNTER 2022-11-15 13:18 | Emergency (ER) | payer OTHER ==
[2022-11-15 13:48] VITALS: BP 148/90; PULSE 81
[2022-11-15] MEDS: Ketorolac 30 MG/ML SDV IM ONE (14:12)
== END 2022-11-15 14:15 | disposition home or self-care (01) ==
LOC: JP.ED 13:18
DX: R29.2 Abnormal reflex (principal); F17.210 Nicotine dependence, cigarettes, uncomplicated; K21.9 Gastro-esophageal reflux disease without esophagitis; Z88.1 Allergy status to other antibiotic agents; Z88.7 Allergy status to serum and vaccine; Z79.899 Other long term (current) drug therapy
CPT/HCPCS: 96372; 99283; J1885

== ENCOUNTER 2023-10-24 11:24 | Emergency (ER) | payer MEDICARE, OTHER ==
[2023-10-24 11:34] VITALS: BP 149/81; PULSE 81
== END 2023-10-24 13:04 | disposition left against medical advice (07) ==
LOC: JP.ED 11:24
DX: Z53.21 Procedure and treatment not carried out due to patient leaving prior to being seen by health care provider (principal)

== ENCOUNTER 2024-08-12 20:47 | Emergency (ER) | payer MEDICARE ==
[2024-08-12] MEDS: EPINEPHrine 1 MG/ML SDV IM ONE (20:53)
[2024-08-12] MEDS: diphenhydrAMINE 50 MG/ML SDV IVPUSH ONE (20:55)
[2024-08-12 20:57] LABS: BASOPHILS ABSOLUTE AUTO 0.05 K/uL (0.00-0.10); BASOPHILS PERCENT AUTO 0.3 % (0.1-1.3); EOSINOPHILS ABSOLUTE AUTO 0.03 K/uL (0.00-0.40); EOSINOPHILS PERCENT AUTO 0.2 % (0.0-5.4); HEMATOCRIT 52.4 % (38.4-49.7); HEMOGLOBIN 17.5 g/dL (12.9-16.9); IMMATURE GRAN ABSOLUTE AUTO 0.07 K/uL (0.00-0.23); IMMATURE GRAN PERCENT AUTO 0.5 % (0.0-0.7); LYMPHOCYTES ABSOLUTE AUTO 1.64 K/uL (0.8-3.3); MEAN CORPUSCULAR HEMOGLOBIN 32.8 pg (31.6-35.5); MEAN CORPUSCULAR HGB CONC 33.4 g/dL (31.6-35.5); MEAN CORPUSCULAR VOLUME 98.3 fL (81.4-99.0); MONOCYTES ABSOLUTE AUTO 0.84 K/uL (0.20-0.90); MONOCYTES PERCENT AUTO 5.6 % (3.3-12.6); NEUTROPHILS ABSOLUTE AUTO 12.26 K/uL (1.0-7.6); NEUTROPHILS PERCENT AUTO 82.4 % (40.0-78.1); PLATELET COUNT,PLT 254 K/uL (130-375); RED BLOOD CELL COUNT 5.33 M/uL (4.14-5.76); WHITE BLOOD CELL COUNT,WBC 14.9 K/uL (3.2-11.0)
[2024-08-12] MEDS: methylPREDNISolone Sodium Succinate 125 MG/2 ML SDV IVPUSH ONE (20:58)
[2024-08-12 21:12] LABS: ANION GAP 10.2 mmol/L (5.0-14.0); CREATININE 1.5 mg/dL (0.8-1.3); EST CRCL DRUG DOSING (CG) 52.02 mL/min; POTASSIUM,K 4.4 mmol/L (3.6-5.2)
[2024-08-12] MEDS: Sodium Chloride 0.9% 1,000 ML IV SCH (21:49)
[2024-08-12 22:05] VITALS: BP 105/43; PULSE 77
== END 2024-08-13 00:41 | disposition home or self-care (01) ==
LOC: JP.ED 20:47
DX: T78.40XA Allergy, unspecified, initial encounter (principal); E78.00 Pure hypercholesterolemia, unspecified; K21.9 Gastro-esophageal reflux disease without esophagitis; Z88.8 Allergy status to other drugs, medicaments and biological substances; Z79.899 Other long term (current) drug therapy; Z79.1 Long term (current) use of non-steroidal anti-inflammatories (NSAID); Z79.891 Long term (current) use of opiate analgesic
CPT/HCPCS: 36415; 80048; 84484; 85025; 93005; 93010; 96361; 96372; 96374; 96375; 99284; 99285-25; J0171; J1200; J2919; J7030

== ENCOUNTER 2024-10-20 07:55 | Day surgery (SDC) | payer MEDICARE ==
[2024-10-20 08:16] VITALS: BP 151/85; PULSE 65
[2024-10-20] MEDS: Lactated Ringers 1,000 ML IV SCH (08:43)
== END 2024-10-20 09:16 | disposition home or self-care (01) ==
LOC: JP.SDS 07:55
PROVIDERS: ATTEND Surgery
DX: Z12.11 Encounter for screening for malignant neoplasm of colon (principal); Z53.8 Procedure and treatment not carried out for other reasons
CPT/HCPCS: J7120